=== PATIENT | male | born 1955 | race Caucasian/White ===

== ENCOUNTER 2016-08-01 00:37 | Observation (INO) | payer MEDICARE ==
[~2016-08-01] VITALS: Ht 172.7 cm; Wt 83.9 kg
[~2016-08-01 00:37] MED LIST: AMLO10TA4 PO; ATOR40TA78 PO; CLOP75TA22 PO; CYCL-259 PO; FLUO40CA9 PO; IBUP200T48 PO; METH750T87 PO; OMEP20TA62 PO; POTA20TA89 PO; [UNRECOGNIZED DRUG - OTHER] PO
[2016-08-01 01:39] LABS: HEMOGLOBIN 12.6 g/dL (13.7-18.0)
[2016-08-01 01:46] LABS: BLOOD UREA NITROGEN 13 mg/dL (7-18)
[2016-08-01 01:47] LABS: ACETAMINOPHEN < 2 mcg/mL (10-30)
[2016-08-01] MEDS ORDERED: POTASSIUM CHLORIDE 20 MEQ TAB.ER.PRT PO ONE (03:00)
[2016-08-01] MEDS ORDERED: POTASSIUM CHLORIDE 20 MEQ TAB.ER.PRT ONE (03:11)
[2016-08-01] MEDS ORDERED: METHOCARBAMOL 750 MG TABLET PO PRN (05:30)
[2016-08-01] MEDS ORDERED: ONDANSETRON ODT 4 MG PO PRN (05:30)
[2016-08-01] MEDS ORDERED: CYCLOBENZAPRINE 10 MG TABLET PO PRN (05:30)
[2016-08-01] MEDS ORDERED: IBUPROFEN 200 MG TABLET PO PRN (05:30)
[2016-08-01] MEDS ORDERED: HALOPERIDOL 5 MG TABLET PO PRN (05:30)
[2016-08-01] MEDS ORDERED: POLYETHYLENE GLYCOL 17 GM PACKET PO PRN (05:30)
[2016-08-01] MEDS ORDERED: DOCUSATE 100 MG CAPSULE PO PRN (05:30)
[2016-08-01] MEDS ORDERED: BISACODYL 10 MG SUPP PR PRN (05:30)
[2016-08-01] MEDS ORDERED: BENZTROPINE 1 MG TABLET PO PRN (05:30)
[2016-08-01 06:44] LABS: DAU SCREEN DISCLAIMER
[2016-08-01] MEDS ORDERED: LORazepam 1MG TABLET ONE (07:27)
[2016-08-01 08:10] VITALS: BP 116/68
[2016-08-01] MEDS ORDERED: POTASSIUM CHLORIDE 20 MEQ TAB.ER.PRT PO SCH (09:00)
[2016-08-01] MEDS ORDERED: FLUOXETINE 20 MG CAPSULE PO SCH (09:00)
[2016-08-01] MEDS ORDERED: AMLODIPINE 5 MG TABLET PO SCH (09:00)
[2016-08-01] MEDS ORDERED: OMEPRAZOLE 20 MG CAPSULE.DR PO SCH (09:00)
[2016-08-01] MEDS ORDERED: IPRA12.9 INH (10:08)
[2016-08-01] MEDS ORDERED: FURO-93 PO (10:08)
[2016-08-01] MEDS ORDERED: GABA600T2 PO (10:08)
[2016-08-01] MEDS ORDERED: LORA10TA72 PO (10:08)
[2016-08-01] MEDS ORDERED: DIPH25CA61 PO (10:08)
[2016-08-01 15:18] VITALS: BP 164/88
[2016-08-01 19:20] VITALS: BP 128/80
[2016-08-01] MEDS ORDERED: QUETIAPINE 100MG TABLET PO SCH (21:00)
[2016-08-01] MEDS ORDERED: CLOPIDOGREL 75 MG TABLET PO SCH (21:00)
[2016-08-01] MEDS ORDERED: ATORVASTATIN 40 MG TABLET PO SCH (21:00)
== END 2016-08-02 04:45 ==
LOC: ED 02:53 → EDIP 04:25 → 3E 07:57
PROVIDERS: ADMIT Internal Medicine; ATTEND Internal Medicine
DX: R45.851 Suicidal ideations (principal); F20.9 Schizophrenia, unspecified; F23 Brief psychotic disorder; F32.9 Major depressive disorder, single episode, unspecified; J44.9 Chronic obstructive pulmonary disease, unspecified; Z91.14 Patient's other noncompliance with medication regimen; F41.9 Anxiety disorder, unspecified; E87.6 Hypokalemia; E88.09 Other disorders of plasma-protein metabolism, not elsewhere classified; I10 Essential (primary) hypertension; F10.10 Alcohol abuse, uncomplicated; Z86.73 Personal history of transient ischemic attack (TIA), and cerebral infarction without residual deficits; Z72.0 Tobacco use
CPT/HCPCS: 36415; 71010; 73564; 80048; 80307; 80329; 82040; 85025; 99285; G0378; G0480

== ENCOUNTER 2016-09-01 01:54 | Emergency (ER) | payer MEDICARE ==
[~2016-09-01] VITALS: Ht 167.6 cm; Wt 87.1 kg
[~2016-09-01 01:54] MED LIST changes: +DIPH25CA61 PO; +FURO-93 PO; +GABA600T2 PO; +IPRA12.9 INH; +LORA10TA72 PO
[2016-09-01 04:24] VITALS: BP 121/72
== END 2016-09-01 04:26 | disposition home or self-care (01) ==
LOC: ED 03:00
DX: F41.1 Generalized anxiety disorder (principal); F12.929 Cannabis use, unspecified with intoxication, unspecified; F32.0 Major depressive disorder, single episode, mild; J44.9 Chronic obstructive pulmonary disease, unspecified; Z86.73 Personal history of transient ischemic attack (TIA), and cerebral infarction without residual deficits
CPT/HCPCS: 99284

== ENCOUNTER 2017-01-05 20:19 | Emergency (ER) | payer MEDICARE ==
[~2017-01-05] VITALS: Ht 170.2 cm; Wt 78.4 kg
[~2017-01-05 20:19] MED LIST changes: -CLOP75TA22 PO; +CLOP75TA52 PO
[2017-01-05 20:22] VITALS: BP 92/57
[2017-01-05] MEDS ORDERED: ACETAMINOPHEN 325 MG TABLET ONE (21:11)
[2017-01-05] MEDS ORDERED: ALBUTEROL/IPRATROPIUM 2.5MG/0.5MG, 3 ML ONE (21:13)
[2017-01-05] MEDS ORDERED: ALBUTEROL/IPRATROPIUM 2.5MG/0.5MG, 3 ML NPPB ONE (21:30)
[2017-01-05] MEDS ORDERED: ACETAMINOPHEN 325 MG TABLET PO ONE (21:30)
[2017-01-05] MEDS ORDERED: GABAPENTIN 300 MG CAPSULE PO ONE (22:30)
== END 2017-01-05 23:29 | disposition home or self-care (01) ==
LOC: ED 22:17
DX: J44.0 Chronic obstructive pulmonary disease with (acute) lower respiratory infection (principal); J20.9 Acute bronchitis, unspecified; I10 Essential (primary) hypertension; Z86.73 Personal history of transient ischemic attack (TIA), and cerebral infarction without residual deficits
CPT/HCPCS: 71020; 94640; 99284; J7512; J7620

== ENCOUNTER 2017-04-04 21:44 | Emergency (ER) | payer MEDICARE ==
[~2017-04-04] VITALS: Ht 170.2 cm; Wt 79.8 kg
[2017-04-04 21:46] VITALS: BP 140/79
== END 2017-04-04 23:06 | disposition home or self-care (01) ==
LOC: ED 22:07
DX: L02.31 Cutaneous abscess of buttock (principal); J44.9 Chronic obstructive pulmonary disease, unspecified; I10 Essential (primary) hypertension; Z86.73 Personal history of transient ischemic attack (TIA), and cerebral infarction without residual deficits; F17.210 Nicotine dependence, cigarettes, uncomplicated
CPT/HCPCS: 10060; 99283

== ENCOUNTER 2017-04-07 01:37 | Emergency (ER) | payer MEDICARE ==
[~2017-04-07] VITALS: Ht 170.2 cm; Wt 81.9 kg
[2017-04-07 01:40] VITALS: BP 151/87
== END 2017-04-07 02:33 | disposition home or self-care (01) ==
LOC: ED 02:29
DX: L02.31 Cutaneous abscess of buttock (principal); J44.9 Chronic obstructive pulmonary disease, unspecified; I10 Essential (primary) hypertension; Z86.73 Personal history of transient ischemic attack (TIA), and cerebral infarction without residual deficits
CPT/HCPCS: 99281

== ENCOUNTER 2017-12-28 12:47 | Inpatient (IN) | payer MEDICARE ==
[~2017-12-28] VITALS: Ht 170.2 cm; Wt 87.1 kg
[~2017-12-28 12:47] MED LIST changes: -IBUP200T48 PO; +IBUP200T49 PO
[2017-12-28] MEDS ORDERED: DIPH,PERTUSS(ACELL),TET VAC/PF 0.5 ML IM-VACC ONE ×2 (13:00→13:52)
[2017-12-28] MEDS ORDERED: AMPICILLIN/SULBACTAM 3 GM in SODIUM CHLORIDE 0.9% 100 ML IVPB ONE (13:00)
[2017-12-28] MEDS ORDERED: SODIUM CHLORIDE FLUSH 10ML SYR IVF ONE (13:00)
[2017-12-28] MEDS ORDERED: SODIUM CHLORIDE 0.9% 1,000ML IVBOLUS ONE (13:00)
[2017-12-28] MEDS ORDERED: morphine SULFATE 10 MG/ML, 1ML IVPush ONE (13:30)
[2017-12-28] MEDS ORDERED: VANCOMYCIN 1,400 MG in SODIUM CHLORIDE 0.9% 250 ML IV ONE (13:30)
[2017-12-28] MEDS ORDERED: VANCOMYCIN PER PHARMACY MC ONE (13:30)
[2017-12-28 13:44] LABS: BASOPHILS # (AUTO) 0.01 x10^3/uL (0-0.1); BASOPHILS % (AUTO) 0 % (0-1); EOSINOPHILS # (AUTO) 0.07 x10^3/uL (0-0.4); EOSINOPHILS % (AUTO) 0 % (1-7); LYMPHOCYTES # (AUTO) 1.32 x10^3/uL (1-3.4); LYMPHOCYTES % (AUTO) 9 % (22-44); MD NO; MEAN CORPUSCULAR HEMOGLOBIN 29.9 pg (27.5-34.5); MEAN CORPUSCULAR HGB CONC 33.7 g/dL (33.2-36.2); MEAN CORPUSCULAR VOLUME 88.8 fL (81-97); MEAN PLATELET VOLUME 7.1 fL (7.4-10.4); MONOCYTES # (AUTO) 0.98 x10^3/uL (0.2-0.8); MONOCYTES % (AUTO) 6 % (2-9); NEUTROPHILS # (AUTO) 12.89 x10^3/uL (1.8-6.8); NEUTROPHILS % (AUTO) 84 % (42-75); PLATELET COUNT 387 x10^3/uL (130-400); RED BLOOD COUNT 4.08 x10^6/uL (4.38-5.82); RED CELL DISTRIBUTION WIDTH 15.6 % (9.4-14.8)
[2017-12-28] MEDS ORDERED: CYCL5TAB PO (13:44)
[2017-12-28] MEDS ORDERED: FURO-93 PO (13:46)
[2017-12-28 13:50] LABS: ALBUMIN 2.3 g/dL (3.4-5.0); ANION GAP 6 mmol/L (5-15); CALCIUM 8.4 mg/dL (8.5-10.1); CHLORIDE 108 mmol/L (98-107)
[2017-12-28] MEDS ORDERED: MORPHINE SULFATE 4 MG/ML, 1ML ONE (13:52)
[2017-12-28 14:45] LABS: HCT (SEDRATE) 36.2 % (39.2-51.8)
[2017-12-28] MEDS ORDERED: ONDANSETRON 2MG/ML, 2ML IVPush PRN (15:30)
[2017-12-28] MEDS ORDERED: SENNA/DOCUSATE TABLET PO PRN (15:30)
[2017-12-28] MEDS ORDERED: MINERA CRM, 60GM TP PRN (15:30)
[2017-12-28] MEDS ORDERED: METHOCARBAMOL 500 MG TABLET PO PRN (15:30)
[2017-12-28] MEDS ORDERED: VANCOMYCIN PER PHARMACY MC PRN (15:30)
[2017-12-28] MEDS ORDERED: IBUPROFEN 800 MG TABLET PO PRN (15:30)
[2017-12-28] MEDS: NICOTINE 21 MG/24 HR PATCH.TD24 TD SCH (15:30)
[2017-12-28 16:07] VITALS: BP 124/65
[2017-12-28] MEDS ORDERED: PHARMACOKINETIC CONSULTATION MC ONE (16:30)
[2017-12-28] MEDS ORDERED: PHARMACOKINETIC MONITORING MC PRN (16:30)
[2017-12-28] MEDS ORDERED: KETOROLAC 30 MG/1 ML IM PRN (16:30)
[2017-12-28] MEDS: KETOROLAC 30 MG/1 ML IM/IV PRN (16:36)
[2017-12-28] MEDS: ACETAMINOPHEN 325 MG TABLET PO SCH ×2 (16:37→22:02)
[2017-12-28] MEDS: SODIUM CHLORIDE 0.9% 1,000 ML IV SCH (16:37)
[2017-12-28] MEDS: ENOXAPARIN 40 MG/0.4 ML SQ SCH (16:37)
[2017-12-28] MEDS: GABAPENTIN 300 MG CAPSULE PO SCH ×2 (16:37→21:00)
[2017-12-28] MEDS: AMPICILLIN/SULBACTAM 3 GM in SODIUM CHLORIDE 0.9% 100 ML IV SCH ×2 (16:57→22:58)
[2017-12-28] MEDS ORDERED: VANCOMYCIN 1,400 MG in SODIUM CHLORIDE 0.9% 250 ML IV SCH (17:00)
[2017-12-28] MEDS ORDERED: PROPOFOL 10 MG/ML, 20ML ONE (17:07)
[2017-12-28] MEDS ORDERED: BUPIVACAINE/PF-EPI 0.5% 1:200K ONE (17:26)
[2017-12-28] MEDS: CARVEDILOL 6.25 MG TABLET PO SCH (17:38)
[2017-12-28] MEDS ORDERED: FENTANYL PF 100 MCG/2ML ONE ×2 (17:54→18:41)
[2017-12-28] MEDS ORDERED: DEXAMETHASONE 4 MG/ML, 1ML ONE (18:15)
[2017-12-28] MEDS ORDERED: ONDANSETRON 2MG/ML, 2ML ONE ×2 (18:15)
[2017-12-28] MEDS ORDERED: FENTANYL PF 100 MCG/2ML IV PRN (18:30)
[2017-12-28] MEDS ORDERED: DIPHENHYDRAMINE 50 MG/ML, 1ML IVPush PRN (18:30)
[2017-12-28] MEDS ORDERED: HYDROmorphone 1 MG/ML, 1ML IV PRN (18:30)
[2017-12-28] MEDS ORDERED: PROMETHAZINE 25 MG/ML, 1ML IV PRN (18:30)
[2017-12-28] MEDS ORDERED: OXYcodone 5 MG/5 ML ORAL.SOL UDC PO PRN (18:30)
[2017-12-28] MEDS ORDERED: LABETALOL 5MG/ML, 20ML IV PRN (18:30)
[2017-12-28] MEDS ORDERED: OXYcodone 5 MG/5 ML ORAL.SOL UDC ONE (19:16)
[2017-12-28 20:00] VITALS: BP 152/89
[2017-12-28] MEDS: ATORVASTATIN 40 MG TABLET PO SCH (21:13)
[2017-12-28] MEDS: CLOPIDOGREL 75 MG TABLET PO SCH (21:13)
[2017-12-29 01:20] VITALS: BP 130/82
[2017-12-29] MEDS: KETOROLAC 30 MG/1 ML IM/IV PRN (04:32)
[2017-12-29] MEDS: ACETAMINOPHEN 325 MG TABLET PO SCH ×4 (04:32→20:43)
[2017-12-29] MEDS: AMPICILLIN/SULBACTAM 3 GM in SODIUM CHLORIDE 0.9% 100 ML IV SCH ×4 (04:55→23:12)
[2017-12-29 04:57] LABS: BASOPHILS # (AUTO) 0.04 x10^3/uL (0-0.1); BASOPHILS % (AUTO) 0 % (0-1); EOSINOPHILS % (AUTO) 0 % (1-7); LYMPHOCYTES # (AUTO) 0.71 x10^3/uL (1-3.4); LYMPHOCYTES % (AUTO) 4 % (22-44); MD NO; MEAN CORPUSCULAR HEMOGLOBIN 29.7 pg (27.5-34.5); MEAN CORPUSCULAR HGB CONC 33.5 g/dL (33.2-36.2); MEAN CORPUSCULAR VOLUME 88.7 fL (81-97); MEAN PLATELET VOLUME 7.3 fL (7.4-10.4); MONOCYTES # (AUTO) 0.46 x10^3/uL (0.2-0.8); MONOCYTES % (AUTO) 3 % (2-9); NEUTROPHILS # (AUTO) 16.32 x10^3/uL (1.8-6.8); NEUTROPHILS % (AUTO) 93 % (42-75); PLATELET COUNT 397 x10^3/uL (130-400); RED BLOOD COUNT 4.02 x10^6/uL (4.38-5.82); RED CELL DISTRIBUTION WIDTH 15.6 % (9.4-14.8)
[2017-12-29 05:06] LABS: ANION GAP 6 mmol/L (5-15); CHLORIDE 111 mmol/L (98-107)
[2017-12-29 05:07] LABS: CREATININE 1.05 mg/dL (0.7-1.3)
[2017-12-29] MEDS: CARVEDILOL 6.25 MG TABLET PO SCH ×2 (06:17→18:07)
[2017-12-29 07:39] VITALS: BP 114/56
[2017-12-29] MEDS: DIPHENHYDRAMINE 25 MG CAPSULE PO SCH (07:56)
[2017-12-29] MEDS: OMEPRAZOLE 20 MG CAPSULE.DR PO SCH (07:56)
[2017-12-29] MEDS: LACTOBACILLUS CHEW TABLET PO SCH ×3 (07:56→20:43)
[2017-12-29] MEDS: CYCLOBENZAPRINE 10 MG TABLET PO SCH (07:56)
[2017-12-29] MEDS: GABAPENTIN 300 MG CAPSULE PO SCH ×3 (07:56→20:44)
[2017-12-29] MEDS: FLUOXETINE HCL 20 MG CAPSULE PO SCH (07:56)
[2017-12-29] MEDS: SODIUM CHLORIDE 0.9% 1,000 ML IV SCH ×2 (10:15→23:13)
[2017-12-29 14:22] VITALS: BP 137/78
[2017-12-29 14:28] VITALS: BP 98/60
[2017-12-29] MEDS: VANCOMYCIN 1,400 MG in SODIUM CHLORIDE 0.9% 250 ML IV SCH (15:16)
[2017-12-29] MEDS: NICOTINE 21 MG/24 HR PATCH.TD24 TD SCH (15:16)
[2017-12-29] MEDS: ENOXAPARIN 40 MG/0.4 ML SQ SCH (16:20)
[2017-12-29 18:00] VITALS: BP 155/84
[2017-12-29 19:09] VITALS: BP 133/74
[2017-12-29] MEDS: CLOPIDOGREL 75 MG TABLET PO SCH (20:44)
[2017-12-29] MEDS: ATORVASTATIN 40 MG TABLET PO SCH (20:44)
[2017-12-30 01:53] VITALS: BP 143/77
[2017-12-30] MEDS: AMPICILLIN/SULBACTAM 3 GM in SODIUM CHLORIDE 0.9% 100 ML IV SCH ×3 (05:05→17:03)
[2017-12-30] MEDS: CARVEDILOL 6.25 MG TABLET PO SCH (05:05)
[2017-12-30] MEDS: ACETAMINOPHEN 325 MG TABLET PO SCH ×4 (05:06→19:44)
[2017-12-30 05:19] LABS: BASOPHILS # (AUTO) 0.04 x10^3/uL (0-0.1); BASOPHILS % (AUTO) 0 % (0-1); EOSINOPHILS # (AUTO) 0.12 x10^3/uL (0-0.4); EOSINOPHILS % (AUTO) 1 % (1-7); LYMPHOCYTES # (AUTO) 1.45 x10^3/uL (1-3.4); LYMPHOCYTES % (AUTO) 11 % (22-44); MD NO; MEAN CORPUSCULAR HEMOGLOBIN 30.3 pg (27.5-34.5); MEAN CORPUSCULAR HGB CONC 34.5 g/dL (33.2-36.2); MEAN CORPUSCULAR VOLUME 87.9 fL (81-97); MONOCYTES # (AUTO) 0.64 x10^3/uL (0.2-0.8); MONOCYTES % (AUTO) 5 % (2-9); NEUTROPHILS # (AUTO) 10.85 x10^3/uL (1.8-6.8); NEUTROPHILS % (AUTO) 83 % (42-75); PLATELET COUNT 404 x10^3/uL (130-400); RED BLOOD COUNT 3.68 x10^6/uL (4.38-5.82); RED CELL DISTRIBUTION WIDTH 15.6 % (9.4-14.8)
[2017-12-30 05:30] LABS: ANION GAP 4 mmol/L (5-15); CALCIUM 8.2 mg/dL (8.5-10.1); CHLORIDE 112 mmol/L (98-107); CREATININE 0.98 mg/dL (0.7-1.3)
[2017-12-30 07:35] VITALS: BP 156/80
[2017-12-30] MEDS: LACTOBACILLUS CHEW TABLET PO SCH ×3 (09:05→19:43)
[2017-12-30] MEDS: GABAPENTIN 300 MG CAPSULE PO SCH ×3 (09:05→19:44)
[2017-12-30] MEDS: OMEPRAZOLE 20 MG CAPSULE.DR PO SCH (09:06)
[2017-12-30] MEDS: FLUOXETINE HCL 20 MG CAPSULE PO SCH (09:06)
[2017-12-30] MEDS: DIPHENHYDRAMINE 25 MG CAPSULE PO SCH (09:06)
[2017-12-30] MEDS: CYCLOBENZAPRINE 10 MG TABLET PO SCH (09:07)
[2017-12-30] MEDS: VANCOMYCIN 1,400 MG in SODIUM CHLORIDE 0.9% 250 ML IV SCH (09:27)
[2017-12-30 13:52] VITALS: BP 104/67
[2017-12-30 13:57] VITALS: BP 125/80
[2017-12-30] MEDS: SODIUM CHLORIDE 0.9% 1,000 ML IV SCH (14:36)
[2017-12-30 14:45] VITALS: BP 156/87
[2017-12-30] MEDS: NICOTINE 21 MG/24 HR PATCH.TD24 TD SCH (15:30)
[2017-12-30] MEDS: ENOXAPARIN 40 MG/0.4 ML SQ SCH (16:35)
[2017-12-30] MEDS: KETOROLAC 30 MG/1 ML IM/IV PRN (17:11)
[2017-12-30] MEDS: CARVEDILOL 12.5 MG TABLET PO SCH (17:23)
[2017-12-30 19:18] VITALS: BP 145/80
[2017-12-30] MEDS: CEFAZOLIN 2,000 MG in SODIUM CHLORIDE 0.9% 50 ML IV SCH (19:43)
[2017-12-30] MEDS: CLOPIDOGREL 75 MG TABLET PO SCH (19:44)
[2017-12-30] MEDS: ATORVASTATIN 40 MG TABLET PO SCH (19:44)
[2017-12-31 01:49] VITALS: BP 160/83
[2017-12-31 05:25] LABS: BASOPHILS # (AUTO) 0.01 x10^3/uL (0-0.1); BASOPHILS % (AUTO) 0 % (0-1); EOSINOPHILS # (AUTO) 0.12 x10^3/uL (0-0.4); EOSINOPHILS % (AUTO) 1 % (1-7); LYMPHOCYTES # (AUTO) 1.09 x10^3/uL (1-3.4); LYMPHOCYTES % (AUTO) 11 % (22-44); MD NO; MEAN CORPUSCULAR HEMOGLOBIN 29.3 pg (27.5-34.5); MEAN CORPUSCULAR HGB CONC 33.5 g/dL (33.2-36.2); MEAN CORPUSCULAR VOLUME 87.4 fL (81-97); MEAN PLATELET VOLUME 6.8 fL (7.4-10.4); MONOCYTES % (AUTO) 3 % (2-9); NEUTROPHILS # (AUTO) 8.83 x10^3/uL (1.8-6.8); NEUTROPHILS % (AUTO) 85 % (42-75); PLATELET COUNT 467 x10^3/uL (130-400); RED BLOOD COUNT 3.86 x10^6/uL (4.38-5.82); RED CELL DISTRIBUTION WIDTH 15.6 % (9.4-14.8)
[2017-12-31] MEDS: CEFAZOLIN 2,000 MG in SODIUM CHLORIDE 0.9% 50 ML IV SCH ×2 (05:38→13:55)
[2017-12-31] MEDS: CARVEDILOL 12.5 MG TABLET PO SCH (05:39)
[2017-12-31] MEDS: ACETAMINOPHEN 325 MG TABLET PO SCH ×2 (05:39→09:24)
[2017-12-31] MEDS: SODIUM CHLORIDE 0.9% 1,000 ML IV SCH (05:39)
[2017-12-31 08:32] VITALS: BP 163/87
[2017-12-31] MEDS ORDERED: ISOSORBIDE DINITRATE 10 MG TABLET PO SCH (09:00)
[2017-12-31] MEDS: DIPHENHYDRAMINE 25 MG CAPSULE PO SCH ×2 (09:00→09:24)
[2017-12-31] MEDS: GABAPENTIN 300 MG CAPSULE PO SCH (09:24)
[2017-12-31] MEDS: LACTOBACILLUS CHEW TABLET PO SCH (09:24)
[2017-12-31] MEDS: CYCLOBENZAPRINE 10 MG TABLET PO SCH (09:24)
[2017-12-31] MEDS: FLUOXETINE HCL 20 MG CAPSULE PO SCH (09:25)
[2017-12-31] MEDS: OMEPRAZOLE 20 MG CAPSULE.DR PO SCH (09:25)
[2017-12-31] MEDS: KETOROLAC 30 MG/1 ML IM/IV PRN (09:26)
[2017-12-31] MEDS ORDERED: MINE454C2 TP (12:33)
[2017-12-31] MEDS ORDERED: HYDR-3341 PO (12:33)
[2017-12-31] MEDS ORDERED: ISOS10TA2 PO (12:33)
[2017-12-31] MEDS ORDERED: ACID1TAB7 PO (12:33)
[2017-12-31] MEDS ORDERED: CARV12.543 PO (12:33)
[2017-12-31 15:51] VITALS: BP 145/77
[2018-01-02] MEDS ORDERED: IBUPROFEN 800 MG TABLET PO PRN (16:00)
== END 2017-12-31 16:17 | DRG 853 ==
LOC: ED 14:07 → EDIP 15:03 → 3NE 15:52
PROVIDERS: ADMIT Internal Medicine; ATTEND Internal Medicine
PROC: 0L870ZZ Division of Right Hand Tendon, Open Approach (ICD-10-PCS; principal; 2017-12-29)
PROC: 0H9FXZZ Drainage of Right Hand Skin, External Approach (ICD-10-PCS; 2017-12-29)
DX: A41.9 Sepsis, unspecified organism (principal); E43 Unspecified severe protein-calorie malnutrition; L02.511 Cutaneous abscess of right hand; L03.113 Cellulitis of right upper limb; J44.9 Chronic obstructive pulmonary disease, unspecified; D63.8 Anemia in other chronic diseases classified elsewhere; F20.9 Schizophrenia, unspecified; F10.10 Alcohol abuse, uncomplicated; Y90.9 Presence of alcohol in blood, level not specified; F15.10 Other stimulant abuse, uncomplicated; M65.10 Other infective (teno)synovitis, unspecified site; F17.210 Nicotine dependence, cigarettes, uncomplicated; Z86.73 Personal history of transient ischemic attack (TIA), and cerebral infarction without residual deficits; Z91.19 Patient's noncompliance with other medical treatment and regimen
CPT/HCPCS: 36415; 80048; 82040; 83036; 83605; 85025; 85651; 86140; 87040; 87070; 87075; 87077; 87147; 87186; 87205; 90471; 90715; 93005; 96361; 96374; 99285; G0378; J0295; J0690; J1100; J1650; J1885; J2405; J2704; J3010; J3370; J2270; J7030; J7050; Q0163

== ENCOUNTER 2018-04-18 19:51 | Emergency (ER) | payer MEDICARE ==
[~2018-04-18] VITALS: Ht 167.6 cm; Wt 77.4 kg
[~2018-04-18 19:51] MED LIST changes: +ACID1TAB7 PO; +CARV12.543 PO; +CYCL5TAB PO; +HYDR-3341 PO; +ISOS10TA2 PO; +MINE454C2 TP
[2018-04-18 19:53] VITALS: BP 143/93
[2018-04-18 20:57] LABS: BASOPHILS # (AUTO) 0.04 x10^3/uL (0-0.1); BASOPHILS % (AUTO) 1 % (0-1); EOSINOPHILS # (AUTO) 0.06 x10^3/uL (0-0.4); EOSINOPHILS % (AUTO) 1 % (1-7); LYMPHOCYTES # (AUTO) 1.88 x10^3/uL (1-3.4); LYMPHOCYTES % (AUTO) 20 % (22-44); MD NO; MEAN CORPUSCULAR HEMOGLOBIN 29.4 pg (27.5-34.5); MEAN CORPUSCULAR HGB CONC 33.4 g/dL (33.2-36.2); MEAN PLATELET VOLUME 7.3 fL (7.4-10.4); MONOCYTES # (AUTO) 0.54 x10^3/uL (0.2-0.8); MONOCYTES % (AUTO) 6 % (2-9); NEUTROPHILS # (AUTO) 6.87 x10^3/uL (1.8-6.8); NEUTROPHILS % (AUTO) 73 % (42-75); PLATELET COUNT 413 x10^3/uL (130-400); RED BLOOD COUNT 4.78 x10^6/uL (4.38-5.82); RED CELL DISTRIBUTION WIDTH 15.1 % (9.4-14.8)
[2018-04-18 21:02] LABS: ALBUMIN 3.3 g/dL (3.4-5.0); ANION GAP 6 mmol/L (5-15); CHLORIDE 111 mmol/L (98-107); CREATININE 1.32 mg/dL (0.7-1.3)
== END 2018-04-18 21:32 | disposition home or self-care (01) ==
LOC: ED 21:04
DX: S39.012A Strain of muscle, fascia and tendon of lower back, initial encounter (principal); E78.00 Pure hypercholesterolemia, unspecified; J44.9 Chronic obstructive pulmonary disease, unspecified; X58.XXXA Exposure to other specified factors, initial encounter; Y93.89 Activity, other specified; Y92.89 Other specified places as the place of occurrence of the external cause; Y99.8 Other external cause status
CPT/HCPCS: 36415; 72110; 80048; 82040; 85025; 99284

== ENCOUNTER 2019-04-16 07:56 | Emergency (ER) | payer MEDICARE ==
[~2019-04-16] VITALS: Ht 170.2 cm; Wt 78.8 kg
[~2019-04-16 07:56] MED LIST changes: -GABA600T2 PO; +GABA600T7 PO; -MINE454C2 TP; +MINERIN CREME454 GM TP
[2019-04-16 08:01] VITALS: BP 108/63
[2019-04-16] MEDS ORDERED: NEOSPORIN OINT. PKT 1 PACKET ONE (08:41)
== END 2019-04-16 09:51 | disposition home or self-care (01) ==
LOC: ED 08:57
DX: S90.512A Abrasion, left ankle, initial encounter (principal); S90.812A Abrasion, left foot, initial encounter; L03.116 Cellulitis of left lower limb; L03.115 Cellulitis of right lower limb; E78.00 Pure hypercholesterolemia, unspecified; J44.9 Chronic obstructive pulmonary disease, unspecified; I10 Essential (primary) hypertension; Z86.73 Personal history of transient ischemic attack (TIA), and cerebral infarction without residual deficits; X58.XXXA Exposure to other specified factors, initial encounter; Y93.89 Activity, other specified; Y92.009 Unspecified place in unspecified non-institutional (private) residence as the place of occurrence of the external cause; Y99.8 Other external cause status
CPT/HCPCS: 99283

== ENCOUNTER 2019-04-23 21:29 | Emergency (ER) | payer MEDICARE ==
[~2019-04-23] VITALS: Ht 170.2 cm; Wt 78.7 kg
[2019-04-23 21:33] VITALS: BP 138/74
--- NOTE | 2019-04-23 21:41 | NUR ---
ERP AT BEDSIDE TO [facility]
[2019-04-23] MEDS ORDERED: NEOSPORIN OINT. PKT 1 PACKET ONE (21:46)
--- NOTE | 2019-04-23 22:19 | NUR ---
dressing placed to L foot. Pt to be d/c home.
== END 2019-04-23 22:21 | disposition home or self-care (01) ==
LOC: ED 21:43
DX: L89.622 Pressure ulcer of left heel, stage 2 (principal); I10 Essential (primary) hypertension; J44.9 Chronic obstructive pulmonary disease, unspecified; E78.00 Pure hypercholesterolemia, unspecified; F17.200 Nicotine dependence, unspecified, uncomplicated
CPT/HCPCS: 99281; 99282

== ENCOUNTER 2020-07-31 19:21 | Emergency (ER) | payer MEDICARE ==
[~2020-07-31] VITALS: Ht 170.2 cm; Wt 83.9 kg
[~2020-07-31 19:21] MED LIST changes: +ACET325S PO; +ATOR40TA PO; +CARV12.52 PO; +CLOP75TA PO; -CYCL-259 PO; +CYCL10TA2 PO; +DULO30CA2 PO; +HYDR-2995 PO; +LISI20TA21 PO; +MELA5TAB14 PO; +QUET200T PO; +QUET25TA7 PO; +SIME80TA16 PO; +TRAZ-96 PO
[2020-07-31 19:26] VITALS: BP 157/134
[2020-07-31] MEDS ORDERED: ACETAMINOPHEN 325 MG TABLET ONE (19:41)
[2020-07-31] MEDS ORDERED: LORazepam 1MG TABLET ONE (19:41)
[2020-07-31] MEDS ORDERED: LORazepam 1MG TABLET PO ONE (20:00)
[2020-07-31] MEDS ORDERED: ACETAMINOPHEN 325 MG TABLET PO ONE (20:00)
--- NOTE | 2020-07-31 20:37 | NUR ---
Patient given discharge instructions and they have confirmed that they understand the instructions. Patient ambulatory with steady gait.
--- NOTE | 2020-07-31 20:45 | NUR ---
PT REFUSING TO LEAVE ED WHEN PROVIDED D/C INSTRUCTIONS. PT AMBULATORY WITH STEADY GAIT ESCORTED BY SECURITY.
== END 2020-07-31 20:47 | disposition home or self-care (01) ==
LOC: ED 20:35
DX: S50.312A Abrasion of left elbow, initial encounter (principal); S50.311A Abrasion of right elbow, initial encounter; S80.212A Abrasion, left knee, initial encounter; F15.10 Other stimulant abuse, uncomplicated; I10 Essential (primary) hypertension; J44.9 Chronic obstructive pulmonary disease, unspecified; F17.210 Nicotine dependence, cigarettes, uncomplicated; Z72.9 Problem related to lifestyle, unspecified; Z86.73 Personal history of transient ischemic attack (TIA), and cerebral infarction without residual deficits; X58.XXXA Exposure to other specified factors, initial encounter; Y93.89 Activity, other specified; Y92.89 Other specified places as the place of occurrence of the external cause; Y99.8 Other external cause status
CPT/HCPCS: 99283; 99406

== ENCOUNTER 2020-08-01 17:31 | Emergency (ER) | payer MEDICARE ==
[~2020-08-01] VITALS: Ht 172.7 cm; Wt 80.0 kg
--- NOTE | 2020-08-01 17:48 | NUR ---
Initial interaction with pt. Pt presents to the ER without a shirt. He has multiple belongings bags including a large black trashbag, a lunch box, and 2 tote bags, all of which was placed in psych locker with pt lables. His first statement to this RN was "can I get a sandwhich." MD Villanueva to bedside for assessment, meal tray ordered. UA collected. Lab at bedside.
[2020-08-01 18:09] LABS: BASOPHILS % (AUTO) 0 % (0-1); EOSINOPHILS % (AUTO) 2 % (1-7); LYMPHOCYTES % (AUTO) 14 % (22-44); MEAN CORPUSCULAR HEMOGLOBIN 28.8 pg (27.5-34.5); MEAN CORPUSCULAR HGB CONC 33.5 g/dL (33.2-36.2); MEAN PLATELET VOLUME 8.1 fL (7.4-10.4); MONOCYTES % (AUTO) 9 % (2-9); NEUTROPHILS % (AUTO) 75 % (42-75); PLATELET COUNT 334 x10^3/uL (130-400); RED BLOOD COUNT 4.36 x10^6/uL (4.38-5.82); RED CELL DISTRIBUTION WIDTH 16.2 % (9.4-14.8)
[2020-08-01 18:11] LABS: MD NO
[2020-08-01 18:12] LABS: MICROSCOPIC INDICATED
[2020-08-01 18:21] LABS: ALBUMIN 3.3 g/dL (3.4-5.0); ANION GAP 10 mmol/L (5-15); CALCIUM 8.3 mg/dL (8.5-10.1); CHLORIDE 105 mmol/L (98-107)
[2020-08-01 18:25] LABS: ALANINE AMINOTRANSFERASE 50 U/L (12-78); ALKALINE PHOSPHATASE 116 U/L (45-117); BILIRUBIN,TOTAL 0.8 mg/dL (0.2-1.0); CREATININE 1.74 mg/dL (0.7-1.3); TOTAL PROTEIN 7.7 g/dL (6.4-8.2)
--- NOTE | 2020-08-01 18:31 | NUR ---
Tele Psych requested #[id number]
[2020-08-01 18:44] LABS: SALICYLATE LEVEL < 1.7 mg/dL (2.8-20.0)
[2020-08-01 18:45] LABS: AMPHETAMINE SCREEN, URINE Positive (Negative); BARBITURATE SCREEN, URINE Negative (Negative); BENZODIAZEPINE SCREEN, URINE Negative (Negative); CANNABINOID SCREEN, URINE Negative (Negative); COCAINE SCREEN, URINE Negative (Negative); METHADONE SCREEN, URINE Negative (Negative); OPIATE SCREEN, URINE Negative (Negative)
--- NOTE | 2020-08-01 18:47 | NUR ---
report recieved from marilee rosales
--- NOTE | 2020-08-01 18:53 | NUR ---
REPORT GIVEN TO MARGOT
--- NOTE | 2020-08-01 19:01 | NUR ---
Report from Kristy Saleh. First contact with patient, sitter in line of site. Safety updated, doors down.
--- NOTE | 2020-08-01 19:04 | NUR ---
Pt also has black backpack with belongings.
--- NOTE | 2020-08-01 19:08 | NUR ---
Dr Villanueva at bedside for interview.
[2020-08-01] MEDS ORDERED: POTASSIUM CHLORIDE 20 MEQ TAB.ER.PRT ONE (19:18)
[2020-08-01] MEDS ORDERED: POTASSIUM CHLORIDE 20 MEQ TAB.ER.PRT PO ONE (19:30)
--- NOTE | 2020-08-01 19:46 | NUR ---
Tele psych at bedside.
--- NOTE | 2020-08-01 20:01 | NUR ---
Dr Marquez telemed to consult.
--- NOTE | 2020-08-01 20:02 | NUR ---
Went to room to make sure tele psych on, pt flipped out stating "dont tease me like that, someone came on and then left", moving arms flailing about.
[2020-08-01] MEDS ORDERED: OLANZAPINE 10 MG TABLET ONE (20:22)
--- NOTE | 2020-08-01 20:30 | NUR ---
Ham sandwich and cookie provided, pt has been up ambulatory to and from bathroom. Easily redirectable, pressured speach at times. Sitter in line of site.
--- NOTE | 2020-08-01 20:40 | NUR ---
Short report given to [facility], pt questioned about bed bugs. This nurse and tech have not seen any bugs on pt. Pt states that he got rid of them, he threw out all his clothes and has all new stuff. Rapid covid from right nares taken and walked to lab.
--- NOTE | 2020-08-01 20:45 | NUR ---
Pt now sleeping, is calm, redirectable. Sitter in line of site. Will continue to monitor-covid pending for U.
[2020-08-01 21:37] VITALS: BP 158/88
--- NOTE | 2020-08-01 21:39 | NUR ---
Report to [facility]. Pt and all belongings tx to [facility] with x 2 staff.
[2020-08-02] MEDS ORDERED: OLANZAPINE 10 MG TABLET PO SCH (09:00)
== END 2020-08-01 21:53 | disposition home or self-care (01) ==
LOC: ED 17:55
DX: F33.3 Major depressive disorder, recurrent, severe with psychotic symptoms (principal); Z20.822 Contact with and (suspected) exposure to COVID-19; R45.851 Suicidal ideations; F15.250 Other stimulant dependence with stimulant-induced psychotic disorder with delusions; E11.22 Type 2 diabetes mellitus with diabetic chronic kidney disease; I12.9 Hypertensive chronic kidney disease with stage 1 through stage 4 chronic kidney disease, or unspecified chronic kidney disease; N18.30 Chronic kidney disease, stage 3 unspecified; Z72.9 Problem related to lifestyle, unspecified
CPT/HCPCS: 36415; 80053; 80143; 80179; 80307; 80320; 81001; 85025; 87426; 99285; G0480

== ENCOUNTER 2020-08-01 21:31 | Inpatient (IN) | payer MEDICARE ==
[~2020-08-01] VITALS: Ht 170.2 cm; Wt 92.4 kg
[2020-08-01 22:00] VITALS: BP 129/79
[2020-08-01] MEDS ORDERED: DOCUSATE 100 MG CAPSULE PO PRN (22:00)
[2020-08-01] MEDS ORDERED: POLYETHYLENE GLYCOL 17 GM PACKET PO PRN (22:00)
[2020-08-01] MEDS ORDERED: ONDANSETRON ODT 4 MG PO PRN (22:00)
[2020-08-01] MEDS ORDERED: BISACODYL 10 MG SUPP PR PRN (22:00)
[2020-08-01] MEDS: ACETAMINOPHEN 325 MG TABLET PO PRN (22:34)
[2020-08-02 06:12] VITALS: BP 122/65
[2020-08-02] MEDS: OMEPRAZOLE 20 MG CAPSULE.DR PO SCH (06:16)
[2020-08-02] MEDS: CARVEDILOL 12.5 MG TABLET PO SCH ×2 (06:16→17:54)
[2020-08-02] MEDS: GABAPENTIN 300 MG CAPSULE PO SCH ×4 (06:16→20:22)
[2020-08-02] MEDS: SIMETHICONE 80 MG CHEW TAB PO SCH ×4 (06:28→20:22)
[2020-08-02 08:00] VITALS: BP 97/59
[2020-08-02] MEDS: CYCLOBENZAPRINE 10 MG TABLET PO SCH (08:59)
[2020-08-02] MEDS: ACETAMINOPHEN 325 MG TABLET PO PRN (09:04)
[2020-08-02] MEDS: DULOXETINE 30 MG CAPSULE.DR PO SCH (11:56)
[2020-08-02 17:50] VITALS: BP 132/72
[2020-08-02 19:36] VITALS: BP 100/61
[2020-08-02] MEDS: MELATONIN 5 MG TABLET PO SCH (20:22)
[2020-08-02] MEDS: ATORVASTATIN 40 MG TABLET PO SCH (20:22)
[2020-08-02] MEDS: QUETIAPINE 200 MG TABLET PO SCH (20:22)
[2020-08-03] MEDS: CARVEDILOL 12.5 MG TABLET PO SCH ×2 (06:16→18:08)
[2020-08-03] MEDS: SIMETHICONE 80 MG CHEW TAB PO SCH ×4 (06:16→20:16)
[2020-08-03] MEDS: OMEPRAZOLE 20 MG CAPSULE.DR PO SCH (06:16)
[2020-08-03] MEDS: GABAPENTIN 300 MG CAPSULE PO SCH ×4 (06:16→20:16)
[2020-08-03 06:50] VITALS: BP 111/63
[2020-08-03] MEDS: CYCLOBENZAPRINE 10 MG TABLET PO SCH (09:01)
[2020-08-03] MEDS: DULOXETINE 30 MG CAPSULE.DR PO SCH (09:09)
[2020-08-03] MEDS: ACETAMINOPHEN 325 MG TABLET PO PRN ×2 (09:09→20:16)
[2020-08-03 19:15] VITALS: BP 156/71
[2020-08-03] MEDS: QUETIAPINE 200 MG TABLET PO SCH (20:16)
[2020-08-03] MEDS: ATORVASTATIN 40 MG TABLET PO SCH (20:16)
[2020-08-03] MEDS: MELATONIN 5 MG TABLET PO SCH (20:16)
[2020-08-03] MEDS ORDERED: ALUMINUM/MAG/SIMETHICONE 30 ML UDC PO PRN (23:00)
[2020-08-04] MEDS: GABAPENTIN 300 MG CAPSULE PO SCH ×4 (06:00→19:51)
[2020-08-04] MEDS: SIMETHICONE 80 MG CHEW TAB PO SCH ×4 (06:00→19:56)
[2020-08-04] MEDS: OMEPRAZOLE 20 MG CAPSULE.DR PO SCH (06:00)
[2020-08-04 07:33] VITALS: BP 144/78
[2020-08-04] MEDS: CLOPIDOGREL 75 MG TABLET PO SCH (09:08)
[2020-08-04] MEDS: CYCLOBENZAPRINE 10 MG TABLET PO SCH (09:09)
[2020-08-04] MEDS: DULOXETINE 30 MG CAPSULE.DR PO SCH (09:09)
[2020-08-04] MEDS: CARVEDILOL 12.5 MG TABLET PO SCH ×2 (09:09→19:51)
[2020-08-04 18:31] VITALS: BP 154/89
[2020-08-04] MEDS: ACETAMINOPHEN 325 MG TABLET PO PRN (19:51)
[2020-08-04] MEDS: QUETIAPINE 200 MG TABLET PO SCH (19:51)
[2020-08-04] MEDS: ATORVASTATIN 40 MG TABLET PO SCH (19:51)
[2020-08-04] MEDS: MELATONIN 5 MG TABLET PO SCH (19:51)
[2020-08-05] MEDS: ALUMINUM/MAG/SIMETHICONE 30 ML UDC PO PRN ×2 (06:10→20:48)
[2020-08-05] MEDS: OMEPRAZOLE 20 MG CAPSULE.DR PO SCH (06:10)
[2020-08-05] MEDS: GABAPENTIN 300 MG CAPSULE PO SCH ×4 (06:10→20:22)
[2020-08-05 07:40] VITALS: BP 149/75
[2020-08-05] MEDS: CARVEDILOL 12.5 MG TABLET PO SCH ×2 (08:04→20:22)
[2020-08-05] MEDS: SIMETHICONE 80 MG CHEW TAB PO SCH ×4 (08:04→20:22)
[2020-08-05] MEDS: DULOXETINE 30 MG CAPSULE.DR PO SCH (08:04)
[2020-08-05] MEDS: CYCLOBENZAPRINE 10 MG TABLET PO SCH (08:04)
[2020-08-05] MEDS: CLOPIDOGREL 75 MG TABLET PO SCH (08:05)
[2020-08-05 19:28] VITALS: BP 150/77
[2020-08-05] MEDS: ATORVASTATIN 40 MG TABLET PO SCH (20:22)
[2020-08-05] MEDS: MELATONIN 5 MG TABLET PO SCH (20:22)
[2020-08-05] MEDS: ACETAMINOPHEN 325 MG TABLET PO PRN (20:22)
[2020-08-05] MEDS: QUETIAPINE 200 MG TABLET PO SCH (20:48)
[2020-08-06] MEDS: GABAPENTIN 300 MG CAPSULE PO SCH ×4 (05:25→20:11)
[2020-08-06] MEDS: OMEPRAZOLE 20 MG CAPSULE.DR PO SCH (05:25)
[2020-08-06 07:50] VITALS: BP 149/89
[2020-08-06] MEDS: SIMETHICONE 80 MG CHEW TAB PO SCH ×4 (08:30→20:11)
[2020-08-06] MEDS: CYCLOBENZAPRINE 10 MG TABLET PO SCH (08:30)
[2020-08-06] MEDS: DULOXETINE 30 MG CAPSULE.DR PO SCH (08:30)
[2020-08-06] MEDS: CARVEDILOL 12.5 MG TABLET PO SCH ×2 (08:30→20:11)
[2020-08-06] MEDS: CLOPIDOGREL 75 MG TABLET PO SCH (08:30)
[2020-08-06] MEDS: ACETAMINOPHEN 325 MG TABLET PO PRN ×2 (08:38→20:11)
[2020-08-06 19:35] VITALS: BP 174/95
[2020-08-06] MEDS: MELATONIN 5 MG TABLET PO SCH (20:11)
[2020-08-06] MEDS: ATORVASTATIN 40 MG TABLET PO SCH (20:11)
[2020-08-06] MEDS: QUETIAPINE 200 MG TABLET PO SCH (21:09)
[2020-08-06 22:54] VITALS: BP 135/77
[2020-08-07] MEDS: OMEPRAZOLE 20 MG CAPSULE.DR PO SCH (05:25)
[2020-08-07] MEDS: GABAPENTIN 300 MG CAPSULE PO SCH ×4 (05:25→20:59)
[2020-08-07 07:30] VITALS: BP 155/83
[2020-08-07] MEDS: SIMETHICONE 80 MG CHEW TAB PO SCH ×4 (09:27→21:01)
[2020-08-07] MEDS: QUETIAPINE 25MG TABLET PO PRN (09:28)
[2020-08-07] MEDS: CYCLOBENZAPRINE 10 MG TABLET PO SCH (09:29)
[2020-08-07] MEDS: CLOPIDOGREL 75 MG TABLET PO SCH (09:29)
[2020-08-07] MEDS: DULOXETINE 30 MG CAPSULE.DR PO SCH (09:29)
[2020-08-07] MEDS: CARVEDILOL 12.5 MG TABLET PO SCH ×2 (09:30→20:59)
[2020-08-07 19:28] VITALS: BP 95/60
[2020-08-07] MEDS: MELATONIN 5 MG TABLET PO SCH (20:59)
[2020-08-07] MEDS: ATORVASTATIN 40 MG TABLET PO SCH (20:59)
[2020-08-07] MEDS: QUETIAPINE 200 MG TABLET PO SCH (20:59)
[2020-08-07] MEDS: ACETAMINOPHEN 325 MG TABLET PO PRN (21:00)
[2020-08-08] MEDS: GABAPENTIN 300 MG CAPSULE PO SCH ×4 (05:29→20:52)
[2020-08-08] MEDS: OMEPRAZOLE 20 MG CAPSULE.DR PO SCH (05:29)
[2020-08-08 07:54] VITALS: BP 166/82
[2020-08-08] MEDS: SIMETHICONE 80 MG CHEW TAB PO SCH ×4 (08:54→20:52)
[2020-08-08] MEDS: DULOXETINE 30 MG CAPSULE.DR PO SCH (08:54)
[2020-08-08] MEDS: CYCLOBENZAPRINE 10 MG TABLET PO SCH ×4 (08:54→20:52)
[2020-08-08] MEDS: CARVEDILOL 12.5 MG TABLET PO SCH ×2 (08:54→20:53)
[2020-08-08] MEDS: CLOPIDOGREL 75 MG TABLET PO SCH (08:54)
[2020-08-08 11:59] LABS: CHLORIDE 107 mmol/L (98-107)
[2020-08-08 12:04] LABS: ANION GAP 3 mmol/L (5-15); CALCIUM 8.4 mg/dL (8.5-10.1); CREATININE 1.25 mg/dL (0.7-1.3)
[2020-08-08 20:03] VITALS: BP 146/79
[2020-08-08] MEDS: QUETIAPINE 200 MG TABLET PO SCH (20:52)
[2020-08-08] MEDS: MELATONIN 5 MG TABLET PO SCH (20:53)
[2020-08-08] MEDS: ATORVASTATIN 40 MG TABLET PO SCH (21:20)
[2020-08-09] MEDS: SIMETHICONE 80 MG CHEW TAB PO SCH ×4 (05:44→20:39)
[2020-08-09] MEDS: OMEPRAZOLE 20 MG CAPSULE.DR PO SCH (05:44)
[2020-08-09] MEDS: GABAPENTIN 300 MG CAPSULE PO SCH ×4 (05:44→20:40)
[2020-08-09 07:34] VITALS: BP 152/78
[2020-08-09] MEDS: CLOPIDOGREL 75 MG TABLET PO SCH (09:45)
[2020-08-09] MEDS: ACETAMINOPHEN 325 MG TABLET PO PRN (09:45)
[2020-08-09] MEDS: DULOXETINE 30 MG CAPSULE.DR PO SCH (09:45)
[2020-08-09] MEDS: CYCLOBENZAPRINE 10 MG TABLET PO SCH ×3 (09:46→20:39)
[2020-08-09] MEDS: CARVEDILOL 12.5 MG TABLET PO SCH ×2 (09:46→20:40)
[2020-08-09 19:47] VITALS: BP 148/78
[2020-08-09] MEDS: CIPROFLOXACIN/HYDROCORTISONE EAR SUSP 0.2-1%, 10ML RIGHT EAR SCH (20:40)
[2020-08-09] MEDS: MELATONIN 5 MG TABLET PO SCH (20:40)
[2020-08-09] MEDS: ATORVASTATIN 40 MG TABLET PO SCH (20:40)
[2020-08-09] MEDS: QUETIAPINE 200 MG TABLET PO SCH (20:40)
[2020-08-10] MEDS: OMEPRAZOLE 20 MG CAPSULE.DR PO SCH (06:16)
[2020-08-10] MEDS: GABAPENTIN 300 MG CAPSULE PO SCH ×4 (06:16→19:58)
[2020-08-10 07:19] VITALS: BP 149/84
[2020-08-10] MEDS: SIMETHICONE 80 MG CHEW TAB PO SCH ×4 (08:47→20:13)
[2020-08-10] MEDS: CLOPIDOGREL 75 MG TABLET PO SCH (09:58)
[2020-08-10] MEDS: CIPROFLOXACIN/HYDROCORTISONE EAR SUSP 0.2-1%, 10ML RIGHT EAR SCH ×2 (09:58→20:13)
[2020-08-10] MEDS: CARVEDILOL 12.5 MG TABLET PO SCH ×2 (09:58→19:59)
[2020-08-10] MEDS: DULOXETINE 30 MG CAPSULE.DR PO SCH (09:58)
[2020-08-10] MEDS: CYCLOBENZAPRINE 10 MG TABLET PO SCH ×3 (09:58→19:58)
[2020-08-10 19:09] VITALS: BP 168/97
[2020-08-10] MEDS: MELATONIN 5 MG TABLET PO SCH (19:58)
[2020-08-10] MEDS: ATORVASTATIN 40 MG TABLET PO SCH (19:59)
[2020-08-10] MEDS: QUETIAPINE 200 MG TABLET PO SCH (19:59)
[2020-08-10] MEDS: ACETAMINOPHEN 325 MG TABLET PO PRN (19:59)
[2020-08-10 20:40] VITALS: BP 150/82
[2020-08-11] MEDS: SIMETHICONE 80 MG CHEW TAB PO SCH ×4 (06:29→20:51)
[2020-08-11] MEDS: OMEPRAZOLE 20 MG CAPSULE.DR PO SCH (06:29)
[2020-08-11] MEDS: GABAPENTIN 300 MG CAPSULE PO SCH ×4 (06:29→20:51)
[2020-08-11 07:36] VITALS: BP 129/77
[2020-08-11] MEDS: CIPROFLOXACIN/HYDROCORTISONE EAR SUSP 0.2-1%, 10ML RIGHT EAR SCH ×2 (09:45→20:57)
[2020-08-11] MEDS: CYCLOBENZAPRINE 10 MG TABLET PO SCH ×3 (09:45→20:51)
[2020-08-11] MEDS: CARVEDILOL 12.5 MG TABLET PO SCH ×2 (09:46→20:52)
[2020-08-11] MEDS: DULOXETINE 30 MG CAPSULE.DR PO SCH (09:46)
[2020-08-11] MEDS: ACETAMINOPHEN 325 MG TABLET PO PRN (09:46)
[2020-08-11] MEDS: CLOPIDOGREL 75 MG TABLET PO SCH (09:46)
[2020-08-11 19:57] VITALS: BP 171/90
[2020-08-11] MEDS: QUETIAPINE 200 MG TABLET PO SCH (20:51)
[2020-08-11] MEDS: ATORVASTATIN 40 MG TABLET PO SCH (20:51)
[2020-08-11] MEDS: MELATONIN 5 MG TABLET PO SCH (20:52)
[2020-08-11 21:14] VITALS: BP 150/82
[2020-08-12] MEDS: GABAPENTIN 300 MG CAPSULE PO SCH ×4 (05:42→20:43)
[2020-08-12] MEDS: OMEPRAZOLE 20 MG CAPSULE.DR PO SCH (05:42)
[2020-08-12] MEDS: SIMETHICONE 80 MG CHEW TAB PO SCH ×4 (05:43→20:43)
[2020-08-12 05:57] VITALS: BP 140/80
[2020-08-12] MEDS: CARVEDILOL 12.5 MG TABLET PO SCH ×2 (09:23→20:43)
[2020-08-12] MEDS: DULOXETINE 30 MG CAPSULE.DR PO SCH (09:23)
[2020-08-12] MEDS: CLOPIDOGREL 75 MG TABLET PO SCH (09:24)
[2020-08-12] MEDS: CYCLOBENZAPRINE 10 MG TABLET PO SCH ×3 (09:24→20:43)
[2020-08-12] MEDS: CIPROFLOXACIN/HYDROCORTISONE EAR SUSP 0.2-1%, 10ML RIGHT EAR SCH ×2 (09:25→20:44)
[2020-08-12 19:32] VITALS: BP 135/80
[2020-08-12] MEDS: QUETIAPINE 200 MG TABLET PO SCH (20:43)
[2020-08-12] MEDS: ATORVASTATIN 40 MG TABLET PO SCH (20:43)
[2020-08-12] MEDS: MELATONIN 5 MG TABLET PO SCH (20:43)
[2020-08-13] MEDS: OMEPRAZOLE 20 MG CAPSULE.DR PO SCH (06:21)
[2020-08-13] MEDS: GABAPENTIN 300 MG CAPSULE PO SCH ×4 (06:21→20:32)
[2020-08-13] MEDS: SIMETHICONE 80 MG CHEW TAB PO SCH ×4 (06:21→20:32)
[2020-08-13 07:42] VITALS: BP 150/79
[2020-08-13] MEDS: DULOXETINE 30 MG CAPSULE.DR PO SCH (08:51)
[2020-08-13] MEDS: CLOPIDOGREL 75 MG TABLET PO SCH (08:51)
[2020-08-13] MEDS: CYCLOBENZAPRINE 10 MG TABLET PO SCH ×3 (08:51→20:32)
[2020-08-13] MEDS: CARVEDILOL 12.5 MG TABLET PO SCH ×2 (08:52→20:32)
[2020-08-13] MEDS: CIPROFLOXACIN/HYDROCORTISONE EAR SUSP 0.2-1%, 10ML RIGHT EAR SCH ×2 (08:52→20:32)
[2020-08-13 19:38] VITALS: BP 150/80
[2020-08-13] MEDS: MELATONIN 5 MG TABLET PO SCH (20:32)
[2020-08-13] MEDS: ATORVASTATIN 40 MG TABLET PO SCH (20:32)
[2020-08-13] MEDS: QUETIAPINE 200 MG TABLET PO SCH (20:32)
[2020-08-14] MEDS: GABAPENTIN 300 MG CAPSULE PO SCH ×4 (06:16→21:05)
[2020-08-14] MEDS: SIMETHICONE 80 MG CHEW TAB PO SCH ×4 (06:16→21:05)
[2020-08-14] MEDS: OMEPRAZOLE 20 MG CAPSULE.DR PO SCH (06:16)
[2020-08-14 07:41] VITALS: BP 146/78
[2020-08-14] MEDS: QUETIAPINE 25MG TABLET PO PRN (07:46)
[2020-08-14] MEDS: CYCLOBENZAPRINE 10 MG TABLET PO SCH ×3 (08:31→21:05)
[2020-08-14] MEDS: CARVEDILOL 12.5 MG TABLET PO SCH ×2 (08:31→21:04)
[2020-08-14] MEDS: CLOPIDOGREL 75 MG TABLET PO SCH (08:31)
[2020-08-14] MEDS: DULOXETINE 30 MG CAPSULE.DR PO SCH (08:32)
[2020-08-14] MEDS ORDERED: LORazepam 1MG TABLET PO PRN (12:30)
[2020-08-14] MEDS: CIPROFLOXACIN/HYDROCORTISONE EAR SUSP 0.2-1%, 10ML RIGHT EAR SCH ×2 (14:57→21:06)
[2020-08-14 19:08] VITALS: BP 146/85
[2020-08-14] MEDS: QUETIAPINE 200 MG TABLET PO SCH (21:05)
[2020-08-14] MEDS: ATORVASTATIN 40 MG TABLET PO SCH (21:05)
[2020-08-14] MEDS: MELATONIN 5 MG TABLET PO SCH (21:05)
[2020-08-15] MEDS: SIMETHICONE 80 MG CHEW TAB PO SCH ×4 (06:08→20:17)
[2020-08-15] MEDS: OMEPRAZOLE 20 MG CAPSULE.DR PO SCH (06:08)
[2020-08-15] MEDS: GABAPENTIN 300 MG CAPSULE PO SCH ×4 (06:08→20:17)
[2020-08-15 07:43] VITALS: BP 133/76
[2020-08-15] MEDS: DULOXETINE 30 MG CAPSULE.DR PO SCH (07:58)
[2020-08-15] MEDS: CIPROFLOXACIN/HYDROCORTISONE EAR SUSP 0.2-1%, 10ML RIGHT EAR SCH ×2 (07:58→20:20)
[2020-08-15] MEDS: CYCLOBENZAPRINE 10 MG TABLET PO SCH ×3 (07:58→20:17)
[2020-08-15] MEDS: CARVEDILOL 12.5 MG TABLET PO SCH ×2 (07:58→20:17)
[2020-08-15] MEDS: CLOPIDOGREL 75 MG TABLET PO SCH (07:58)
[2020-08-15 19:32] VITALS: BP 145/84
[2020-08-15] MEDS: MELATONIN 5 MG TABLET PO SCH (20:17)
[2020-08-15] MEDS: ATORVASTATIN 40 MG TABLET PO SCH (20:17)
[2020-08-15] MEDS: QUETIAPINE 200 MG TABLET PO SCH (20:17)
[2020-08-16] MEDS: SIMETHICONE 80 MG CHEW TAB PO SCH ×4 (06:20→21:17)
[2020-08-16] MEDS: OMEPRAZOLE 20 MG CAPSULE.DR PO SCH (06:20)
[2020-08-16] MEDS: GABAPENTIN 300 MG CAPSULE PO SCH ×4 (06:20→21:17)
[2020-08-16 07:37] VITALS: BP 123/76
[2020-08-16] MEDS: CYCLOBENZAPRINE 10 MG TABLET PO SCH ×3 (08:07→21:17)
[2020-08-16] MEDS: CLOPIDOGREL 75 MG TABLET PO SCH (08:07)
[2020-08-16] MEDS: DULOXETINE 30 MG CAPSULE.DR PO SCH (08:07)
[2020-08-16] MEDS: CARVEDILOL 12.5 MG TABLET PO SCH ×2 (08:07→21:17)
[2020-08-16 19:19] VITALS: BP 130/73
[2020-08-16] MEDS: MELATONIN 5 MG TABLET PO SCH (21:17)
[2020-08-16] MEDS: QUETIAPINE 200 MG TABLET PO SCH (21:17)
[2020-08-16] MEDS: ATORVASTATIN 40 MG TABLET PO SCH (21:17)
[2020-08-17] MEDS: OMEPRAZOLE 20 MG CAPSULE.DR PO SCH ×2 (06:02→09:25)
[2020-08-17] MEDS: GABAPENTIN 300 MG CAPSULE PO SCH ×4 (06:02→20:21)
[2020-08-17 07:17] VITALS: BP 124/75
[2020-08-17] MEDS: SIMETHICONE 80 MG CHEW TAB PO SCH ×4 (07:32→20:20)
[2020-08-17] MEDS: CARVEDILOL 12.5 MG TABLET PO SCH ×2 (09:22→20:21)
[2020-08-17] MEDS: DULOXETINE 30 MG CAPSULE.DR PO SCH (09:22)
[2020-08-17] MEDS: CLOPIDOGREL 75 MG TABLET PO SCH (09:22)
[2020-08-17] MEDS: CYCLOBENZAPRINE 10 MG TABLET PO SCH ×3 (09:22→20:20)
[2020-08-17 19:50] VITALS: BP 160/80
[2020-08-17 20:00] VITALS: BP 160/80
[2020-08-17] MEDS: MELATONIN 5 MG TABLET PO SCH (20:20)
[2020-08-17] MEDS: ATORVASTATIN 40 MG TABLET PO SCH (20:20)
[2020-08-17] MEDS: QUETIAPINE 200 MG TABLET PO SCH (20:20)
[2020-08-18 07:18] VITALS: BP 134/81
[2020-08-18] MEDS: SIMETHICONE 80 MG CHEW TAB PO SCH ×4 (08:55→20:00)
[2020-08-18] MEDS: DULOXETINE 30 MG CAPSULE.DR PO SCH (09:27)
[2020-08-18] MEDS: CYCLOBENZAPRINE 10 MG TABLET PO SCH ×3 (09:27→19:59)
[2020-08-18] MEDS: GABAPENTIN 300 MG CAPSULE PO SCH ×4 (09:27→19:58)
[2020-08-18] MEDS: OMEPRAZOLE 20 MG CAPSULE.DR PO SCH (09:27)
[2020-08-18] MEDS: CLOPIDOGREL 75 MG TABLET PO SCH (09:27)
[2020-08-18] MEDS: CARVEDILOL 12.5 MG TABLET PO SCH ×2 (09:27→19:59)
[2020-08-18 19:40] VITALS: BP 150/94
[2020-08-18] MEDS: MELATONIN 5 MG TABLET PO SCH (19:58)
[2020-08-18] MEDS: QUETIAPINE 200 MG TABLET PO SCH ×2 (19:58→20:02)
[2020-08-18] MEDS: ATORVASTATIN 40 MG TABLET PO SCH (19:59)
[2020-08-18] MEDS: ACETAMINOPHEN 325 MG TABLET PO PRN (21:12)
[2020-08-19] MEDS: QUETIAPINE 25MG TABLET PO PRN (01:03)
[2020-08-19] MEDS: GABAPENTIN 300 MG CAPSULE PO SCH ×4 (06:09→20:59)
[2020-08-19] MEDS: OMEPRAZOLE 20 MG CAPSULE.DR PO SCH (06:09)
[2020-08-19] MEDS: CLOPIDOGREL 75 MG TABLET PO SCH (07:59)
[2020-08-19] MEDS: SIMETHICONE 80 MG CHEW TAB PO SCH ×4 (07:59→21:08)
[2020-08-19] MEDS: CYCLOBENZAPRINE 10 MG TABLET PO SCH ×3 (08:00→20:59)
[2020-08-19] MEDS: CARVEDILOL 12.5 MG TABLET PO SCH ×2 (08:00→21:00)
[2020-08-19] MEDS: DULOXETINE 30 MG CAPSULE.DR PO SCH (08:00)
[2020-08-19 08:06] VITALS: BP 150/89
[2020-08-19 19:28] VITALS: BP 124/74
[2020-08-19] MEDS: MELATONIN 5 MG TABLET PO SCH (20:59)
[2020-08-19] MEDS: ATORVASTATIN 40 MG TABLET PO SCH (20:59)
[2020-08-19] MEDS: QUETIAPINE 200 MG TABLET PO SCH (20:59)
[2020-08-20] MEDS: GABAPENTIN 300 MG CAPSULE PO SCH ×4 (06:00→20:23)
[2020-08-20 07:48] VITALS: BP 108/76
[2020-08-20] MEDS: CLOPIDOGREL 75 MG TABLET PO SCH (08:33)
[2020-08-20] MEDS: CARVEDILOL 12.5 MG TABLET PO SCH ×2 (08:33→20:23)
[2020-08-20] MEDS: OMEPRAZOLE 20 MG CAPSULE.DR PO SCH (08:33)
[2020-08-20] MEDS: DULOXETINE 30 MG CAPSULE.DR PO SCH (08:33)
[2020-08-20] MEDS: SIMETHICONE 80 MG CHEW TAB PO SCH ×4 (08:33→20:23)
[2020-08-20] MEDS: CYCLOBENZAPRINE 10 MG TABLET PO SCH ×3 (08:33→20:23)
[2020-08-20 19:32] VITALS: BP 145/81
[2020-08-20] MEDS: MELATONIN 5 MG TABLET PO SCH (20:22)
[2020-08-20] MEDS: ATORVASTATIN 40 MG TABLET PO SCH (20:23)
[2020-08-20] MEDS: QUETIAPINE 200 MG TABLET PO SCH (21:49)
[2020-08-21] MEDS: OMEPRAZOLE 20 MG CAPSULE.DR PO SCH (06:25)
[2020-08-21] MEDS: GABAPENTIN 300 MG CAPSULE PO SCH ×4 (06:25→20:17)
[2020-08-21] MEDS: SIMETHICONE 80 MG CHEW TAB PO SCH ×4 (06:25→20:17)
[2020-08-21 07:54] VITALS: BP 111/72
[2020-08-21] MEDS: CARVEDILOL 12.5 MG TABLET PO SCH ×2 (08:16→20:18)
[2020-08-21] MEDS: DULOXETINE 30 MG CAPSULE.DR PO SCH (08:16)
[2020-08-21] MEDS: CLOPIDOGREL 75 MG TABLET PO SCH (08:16)
[2020-08-21] MEDS: CYCLOBENZAPRINE 10 MG TABLET PO SCH ×3 (08:16→20:17)
[2020-08-21 19:33] VITALS: BP 150/82
[2020-08-21] MEDS: MELATONIN 5 MG TABLET PO SCH (20:17)
[2020-08-21] MEDS: ATORVASTATIN 40 MG TABLET PO SCH (20:17)
[2020-08-21] MEDS: QUETIAPINE 200 MG TABLET PO SCH (22:03)
[2020-08-22] MEDS: OMEPRAZOLE 20 MG CAPSULE.DR PO SCH (06:06)
[2020-08-22] MEDS: GABAPENTIN 300 MG CAPSULE PO SCH ×4 (06:06→21:45)
[2020-08-22 07:24] VITALS: BP 135/78
[2020-08-22] MEDS: CYCLOBENZAPRINE 10 MG TABLET PO SCH ×3 (08:46→21:45)
[2020-08-22] MEDS: SIMETHICONE 80 MG CHEW TAB PO SCH ×4 (08:46→21:45)
[2020-08-22] MEDS: DULOXETINE 30 MG CAPSULE.DR PO SCH (08:46)
[2020-08-22] MEDS: CARVEDILOL 12.5 MG TABLET PO SCH ×2 (08:46→21:45)
[2020-08-22] MEDS: CLOPIDOGREL 75 MG TABLET PO SCH (08:46)
[2020-08-22 19:42] VITALS: BP 121/68
[2020-08-22] MEDS: QUETIAPINE 200 MG TABLET PO SCH (21:45)
[2020-08-22] MEDS: MELATONIN 5 MG TABLET PO SCH (21:45)
[2020-08-22] MEDS: ATORVASTATIN 40 MG TABLET PO SCH (21:45)
[2020-08-23 05:46] VITALS: BP 120/74
[2020-08-23] MEDS: GABAPENTIN 300 MG CAPSULE PO SCH ×4 (05:56→21:07)
[2020-08-23] MEDS: OMEPRAZOLE 20 MG CAPSULE.DR PO SCH (05:56)
[2020-08-23] MEDS: SIMETHICONE 80 MG CHEW TAB PO SCH ×4 (05:57→21:07)
[2020-08-23 07:48] VITALS: BP 117/78
[2020-08-23] MEDS: DULOXETINE 30 MG CAPSULE.DR PO SCH (09:11)
[2020-08-23] MEDS: CLOPIDOGREL 75 MG TABLET PO SCH (09:12)
[2020-08-23] MEDS: CYCLOBENZAPRINE 10 MG TABLET PO SCH ×3 (09:12→21:07)
[2020-08-23] MEDS: CARVEDILOL 12.5 MG TABLET PO SCH ×2 (09:12→21:07)
[2020-08-23 19:33] VITALS: BP 151/82
[2020-08-23] MEDS: ATORVASTATIN 40 MG TABLET PO SCH (21:07)
[2020-08-23] MEDS: MELATONIN 5 MG TABLET PO SCH (21:07)
[2020-08-23] MEDS: QUETIAPINE 100MG TABLET PO SCH (21:07)
[2020-08-24 06:08] VITALS: BP 109/62
[2020-08-24] MEDS: OMEPRAZOLE 20 MG CAPSULE.DR PO SCH (06:09)
[2020-08-24] MEDS: GABAPENTIN 300 MG CAPSULE PO SCH ×4 (06:09→21:33)
[2020-08-24] MEDS: SIMETHICONE 80 MG CHEW TAB PO SCH ×4 (06:09→21:33)
[2020-08-24 07:33] VITALS: BP 135/79
[2020-08-24] MEDS: DULOXETINE 30 MG CAPSULE.DR PO SCH (08:59)
[2020-08-24] MEDS: CYCLOBENZAPRINE 10 MG TABLET PO SCH ×3 (08:59→21:33)
[2020-08-24] MEDS: CARVEDILOL 12.5 MG TABLET PO SCH ×2 (09:00→21:33)
[2020-08-24] MEDS: CLOPIDOGREL 75 MG TABLET PO SCH (09:00)
[2020-08-24 18:43] VITALS: BP 145/84
[2020-08-24] MEDS: QUETIAPINE 100MG TABLET PO SCH (21:33)
[2020-08-24] MEDS: MELATONIN 5 MG TABLET PO SCH (21:33)
[2020-08-24] MEDS: ATORVASTATIN 40 MG TABLET PO SCH (21:33)
[2020-08-25] MEDS: SIMETHICONE 80 MG CHEW TAB PO SCH ×4 (06:10→20:36)
[2020-08-25] MEDS: GABAPENTIN 300 MG CAPSULE PO SCH ×4 (06:10→20:19)
[2020-08-25] MEDS: OMEPRAZOLE 20 MG CAPSULE.DR PO SCH (06:10)
[2020-08-25 06:34] VITALS: BP 131/81
[2020-08-25] MEDS: CARVEDILOL 12.5 MG TABLET PO SCH ×2 (08:08→20:20)
[2020-08-25] MEDS: CLOPIDOGREL 75 MG TABLET PO SCH (08:08)
[2020-08-25] MEDS: DULOXETINE 30 MG CAPSULE.DR PO SCH (08:08)
[2020-08-25] MEDS: CYCLOBENZAPRINE 10 MG TABLET PO SCH ×3 (08:08→20:20)
[2020-08-25 19:43] VITALS: BP 128/67
[2020-08-25] MEDS: MELATONIN 5 MG TABLET PO SCH (20:19)
[2020-08-25] MEDS: QUETIAPINE 100MG TABLET PO SCH (20:20)
[2020-08-25] MEDS: ATORVASTATIN 40 MG TABLET PO SCH (20:21)
[2020-08-26] MEDS: SIMETHICONE 80 MG CHEW TAB PO SCH ×4 (05:55→20:06)
[2020-08-26] MEDS: GABAPENTIN 300 MG CAPSULE PO SCH ×4 (05:55→20:07)
[2020-08-26] MEDS: OMEPRAZOLE 20 MG CAPSULE.DR PO SCH (05:55)
[2020-08-26 07:15] VITALS: BP 124/77
[2020-08-26] MEDS: CYCLOBENZAPRINE 10 MG TABLET PO SCH ×3 (08:22→20:06)
[2020-08-26] MEDS: CARVEDILOL 12.5 MG TABLET PO SCH ×2 (08:23→20:06)
[2020-08-26] MEDS: DULOXETINE 30 MG CAPSULE.DR PO SCH (08:23)
[2020-08-26] MEDS: CLOPIDOGREL 75 MG TABLET PO SCH (08:23)
[2020-08-26 19:20] VITALS: BP 150/81
[2020-08-26] MEDS: ATORVASTATIN 40 MG TABLET PO SCH (20:06)
[2020-08-26] MEDS: QUETIAPINE 100MG TABLET PO SCH (20:06)
[2020-08-26] MEDS: MELATONIN 5 MG TABLET PO SCH (20:06)
[2020-08-27] MEDS: OMEPRAZOLE 20 MG CAPSULE.DR PO SCH (06:03)
[2020-08-27] MEDS: GABAPENTIN 300 MG CAPSULE PO SCH ×4 (06:03→20:21)
[2020-08-27] MEDS: SIMETHICONE 80 MG CHEW TAB PO SCH ×4 (07:35→20:21)
[2020-08-27 07:52] VITALS: BP 137/78
[2020-08-27] MEDS: CARVEDILOL 12.5 MG TABLET PO SCH ×2 (08:27→20:21)
[2020-08-27] MEDS: CLOPIDOGREL 75 MG TABLET PO SCH (08:27)
[2020-08-27] MEDS: DULOXETINE 30 MG CAPSULE.DR PO SCH (08:27)
[2020-08-27] MEDS: CYCLOBENZAPRINE 10 MG TABLET PO SCH ×3 (08:27→20:21)
[2020-08-27] MEDS: ACETAMINOPHEN 325 MG TABLET PO PRN (10:31)
[2020-08-27 19:33] VITALS: BP 140/80
[2020-08-27] MEDS: MELATONIN 5 MG TABLET PO SCH (20:21)
[2020-08-27] MEDS: ATORVASTATIN 40 MG TABLET PO SCH (20:21)
[2020-08-27] MEDS: QUETIAPINE 100MG TABLET PO SCH (20:22)
[2020-08-28] MEDS: GABAPENTIN 300 MG CAPSULE PO SCH ×2 (05:56→11:08)
[2020-08-28] MEDS: OMEPRAZOLE 20 MG CAPSULE.DR PO SCH (05:56)
[2020-08-28 07:49] VITALS: BP 103/71
[2020-08-28] MEDS: CLOPIDOGREL 75 MG TABLET PO SCH (08:39)
[2020-08-28] MEDS: CARVEDILOL 12.5 MG TABLET PO SCH (08:39)
[2020-08-28] MEDS: CYCLOBENZAPRINE 10 MG TABLET PO SCH (08:39)
[2020-08-28] MEDS: SIMETHICONE 80 MG CHEW TAB PO SCH ×2 (08:40→11:08)
[2020-08-28] MEDS: DULOXETINE 30 MG CAPSULE.DR PO SCH (08:40)
[2020-08-28] MEDS: ACETAMINOPHEN 325 MG TABLET PO PRN (11:07)
[2020-08-28] MEDS ORDERED: DULO30CA2 PO (14:52)
[2020-08-28] MEDS ORDERED: OMEP20TA62 PO (14:52)
[2020-08-28] MEDS ORDERED: ATOR40TA PO (14:52)
[2020-08-28] MEDS ORDERED: QUET200T PO (14:52)
[2020-08-28] MEDS ORDERED: MELA5TAB14 PO (14:52)
[2020-08-28] MEDS ORDERED: CLOP75TA PO (14:52)
[2020-08-28] MEDS ORDERED: CARV12.52 PO (14:52)
[2020-08-28] MEDS ORDERED: IPRA12.9 INH (14:52)
== END 2020-08-28 15:51 | disposition home or self-care (01) | DRG 885 ==
LOC: 3E 21:53
PROVIDERS: ADMIT Psychiatry & Neurology Psychosomatic Medicine; ATTEND Psychiatry & Neurology Psychosomatic Medicine
DX: F33.2 Major depressive disorder, recurrent severe without psychotic features (principal); F15.20 Other stimulant dependence, uncomplicated; R45.851 Suicidal ideations; N18.30 Chronic kidney disease, stage 3 unspecified; F20.0 Paranoid schizophrenia; E78.5 Hyperlipidemia, unspecified; F17.200 Nicotine dependence, unspecified, uncomplicated; G47.00 Insomnia, unspecified; G89.29 Other chronic pain; I10 Essential (primary) hypertension; I25.10 Atherosclerotic heart disease of native coronary artery without angina pectoris; J44.9 Chronic obstructive pulmonary disease, unspecified; K21.9 Gastro-esophageal reflux disease without esophagitis; M21.619 Bunion of unspecified foot; Z59.9 Problem related to housing and economic circumstances, unspecified; Z79.899 Other long term (current) drug therapy; Z86.73 Personal history of transient ischemic attack (TIA), and cerebral infarction without residual deficits; Z79.891 Long term (current) use of opiate analgesic; Z79.01 Long term (current) use of anticoagulants; Z63.5 Disruption of family by separation and divorce; Z59.0 Homelessness; Z81.8 Family history of other mental and behavioral disorders; Z82.5 Family history of asthma and other chronic lower respiratory diseases; Z84.89 Family history of other specified conditions
CPT/HCPCS: 36415; 71045; 80048; 80053; 80299; 80307; 80320; 80329; 81001; 85025; 87426; 93005; 99285; G0480; L3908